=== PATIENT | female | born 1970 | race Caucasian/White ===

== ENCOUNTER → 2018-03-14 | Outpatient (CLI) | payer OTHER | END | disposition home or self-care (01) | LOC: CFH 03-05 12:43 | PROVIDERS: ATTEND Specialist | DX: N63.21 Unspecified lump in the left breast, upper outer quadrant (principal); R92.1 Mammographic calcification found on diagnostic imaging of breast | CPT/HCPCS: 76642; 77065; 77066; G0279 ==

== ENCOUNTER → 2018-03-20 | Outpatient (CLI) | payer OTHER ==
[~2018-03-20] MED LIST: LIDOCAINE 1%-EPI 1:100K, 20ML ONE; SODIUM BICARBONATE 4.0%, 5ML ONE
== END | disposition home or self-care (01) ==
LOC: CFH 10:23
PROVIDERS: ATTEND Specialist
DX: N63.21 Unspecified lump in the left breast, upper outer quadrant (principal)
CPT/HCPCS: 19083; 19084; 38505; 76942; 77065; 88305; J3490

== ENCOUNTER → 2018-03-21 | Outpatient (CLI) | payer OTHER ==
[~2018-03-21] MED LIST changes: +LIDOCAINE 1%, 20ML ONE; -LIDOCAINE 1%-EPI 1:100K, 20ML ONE; -SODIUM BICARBONATE 4.0%, 5ML ONE; +SODIUM BICARBONATE 4.2%, 5ML ONE
== END | disposition home or self-care (01) ==
LOC: CFH 08:06
PROVIDERS: ATTEND Specialist
DX: R92.1 Mammographic calcification found on diagnostic imaging of breast (principal); N63.20 Unspecified lump in the left breast, unspecified quadrant
CPT/HCPCS: 19081; 77065; 88305; J3490

== ENCOUNTER → 2018-04-01 | Outpatient (CLI) | payer OTHER ==
[~2018-04-01] MED LIST changes: -LIDOCAINE 1%, 20ML ONE; +OMNIPAQUE 350 MG/ML, 100ML BOTTLE ONE; -SODIUM BICARBONATE 4.2%, 5ML ONE
== END | disposition home or self-care (01) ==
LOC: RAD 08:34
PROVIDERS: ATTEND Surgery
DX: N28.1 Cyst of kidney, acquired (principal); R91.1 Solitary pulmonary nodule; C50.412 Malignant neoplasm of upper-outer quadrant of left female breast
CPT/HCPCS: 71260; 74177; 78306; A9503; Q9967

== ENCOUNTER → 2018-04-04 | Outpatient (CLI) | payer OTHER ==
[~2018-04-04] MED LIST changes: +GADOBUTROL 10 MMOL/10 ML VIAL ONE; -OMNIPAQUE 350 MG/ML, 100ML BOTTLE ONE
== END | disposition home or self-care (01) ==
LOC: CFH 07:04
PROVIDERS: ATTEND Surgery
DX: C50.412 Malignant neoplasm of upper-outer quadrant of left female breast (principal)
CPT/HCPCS: A9585; C8908

== ENCOUNTER → 2018-04-08 | Outpatient (CLI) | payer OTHER | END | disposition home or self-care (01) | LOC: CFH 12:41 | PROVIDERS: ATTEND Internal Medicine Hematology & Oncology | DX: C50.412 Malignant neoplasm of upper-outer quadrant of left female breast (principal) | CPT/HCPCS: 0399T; 93306 ==

== ENCOUNTER 2018-04-11 07:56 | Day surgery (SDC) | payer OTHER ==
[~2018-04-11] VITALS: Ht 172.7 cm; Wt 59.4 kg
[2018-04-11 08:50] VITALS: BP 114/73
[2018-04-11] MEDS ORDERED: no meds per pt (08:50)
[2018-04-11 08:57] LABS: HCG UR SG 1.019 (1.003-1.030)
[2018-04-11] MEDS ORDERED: GABAPENTIN 300 MG CAPSULE PO ONE (09:00)
[2018-04-11] MEDS ORDERED: ONDANSETRON ODT 8 MG PO ONE (09:00)
[2018-04-11] MEDS ORDERED: SCOPOLAMINE PATCH, 1.5MG PATCH.TD72 TD ONE (09:00)
[2018-04-11] MEDS ORDERED: ACETAMINOPHEN 500 MG TABLET PO ONE (09:00)
[2018-04-11] MEDS ORDERED: FENTANYL PF 100 MCG/2ML ONE (09:01)
[2018-04-11] MEDS ORDERED: MIDAZOLAM 1 MG/ML, 2ML ONE (09:01)
[2018-04-11] MEDS ORDERED: LACTATED RINGERS 1,000 ML IV SCH (09:15)
[2018-04-11] MEDS ORDERED: MEPERIDINE/PF 25MG/0.5ML IVPush PRN (09:30)
[2018-04-11] MEDS ORDERED: ONDANSETRON ODT 8 MG PO PRN (09:30)
[2018-04-11] MEDS ORDERED: ALBUTEROL/IPRATROPIUM 2.5MG/0.5MG, 3 ML NPPB PRN (09:30)
[2018-04-11] MEDS ORDERED: PROMETHAZINE 25 MG SUPP PR PRN (09:30)
[2018-04-11] MEDS ORDERED: MIDAZOLAM 1 MG/ML, 2ML IV PRN (09:30)
[2018-04-11] MEDS ORDERED: EPHEDRINE 50 MG/ML, 1ML IM PRN (09:30)
[2018-04-11] MEDS ORDERED: hydrALAzine 20 MG/ML, 1ML IV PRN (09:30)
[2018-04-11] MEDS ORDERED: OXYcodone 5 MG/5 ML ORAL.SOL UDC PO PRN (09:30)
[2018-04-11] MEDS ORDERED: FENTANYL PF 100 MCG/2ML IV PRN (09:30)
[2018-04-11] MEDS ORDERED: MORPHINE SULFATE 4 MG/ML, 1ML IVPush PRN (09:30)
[2018-04-11] MEDS ORDERED: LABETALOL 5MG/ML, 20ML IV PRN (09:30)
[2018-04-11] MEDS ORDERED: PROMETHAZINE 25 MG/ML, 1ML IV PRN (09:30)
[2018-04-11] MEDS ORDERED: BUPIVACAINE/PF-EPI 0.25% 1:200K INFIL ONE (10:51)
[2018-04-11] MEDS ORDERED: HEPARIN 1,000 UNITS/ML, 10ML PERMACATH ONE (10:52)
[2018-04-11] MEDS ORDERED: DEXAMETHASONE 4 MG/ML, 1ML ONE (11:01)
[2018-04-11] MEDS ORDERED: CEFAZOLIN 1,000 MG ONE (11:01)
[2018-04-11] MEDS ORDERED: PROPOFOL 10 MG/ML, 20ML ONE (11:01)
[2018-04-11] MEDS ORDERED: ONDANSETRON 2MG/ML, 2ML ONE (11:01)
== END 2018-04-11 12:15 | disposition home or self-care (01) ==
LOC: OUT 07:56
PROVIDERS: ATTEND Surgery
DX: C50.912 Malignant neoplasm of unspecified site of left female breast (principal); Z72.89 Other problems related to lifestyle; Z82.5 Family history of asthma and other chronic lower respiratory diseases
CPT/HCPCS: 36561; 71045; 77001; 81025; C1788; J0690; J1100; J1644; J2250; J2704; J3010; J7120; Q0162; J2405

== ENCOUNTER → 2018-04-12 | Outpatient (CLI) | payer OTHER ==
[~2018-04-12] MED LIST changes: +BUPIVACAINE/PF-EPI 0.25% 1:200K ONE; -GADOBUTROL 10 MMOL/10 ML VIAL ONE; +HEPARIN 1,000 UNITS/ML, 10ML ONE; +LIDOCAINE 1%, 20ML ONE; +LIDOCAINE 1%-EPI 1:100K, 20ML ONE; +SODIUM BICARBONATE 4.2%, 5ML ONE; +no meds per pt
== END | disposition home or self-care (01) ==
LOC: CFH 07:12
PROVIDERS: ATTEND Surgery
DX: C50.412 Malignant neoplasm of upper-outer quadrant of left female breast (principal)
CPT/HCPCS: 19285; J3490; J1644

== ENCOUNTER → 2018-07-19 | Outpatient (CLI) | payer OTHER ==
[~2018-07-19] MED LIST changes: -BUPIVACAINE/PF-EPI 0.25% 1:200K ONE; -HEPARIN 1,000 UNITS/ML, 10ML ONE; -LIDOCAINE 1%, 20ML ONE; -LIDOCAINE 1%-EPI 1:100K, 20ML ONE; -SODIUM BICARBONATE 4.2%, 5ML ONE
== END | disposition home or self-care (01) ==
LOC: CFH 13:01
PROVIDERS: ATTEND Surgery
DX: C50.912 Malignant neoplasm of unspecified site of left female breast (principal); R92.1 Mammographic calcification found on diagnostic imaging of breast
CPT/HCPCS: 77066

== ENCOUNTER → 2018-07-22 | Outpatient (CLI) | payer OTHER ==
[~2018-07-22] MED LIST changes: +GADOBUTROL 7.5 MMOL/7.5 ML VIAL ONE
== END | disposition home or self-care (01) ==
LOC: CFH 11:57
PROVIDERS: ATTEND Surgery
DX: C50.912 Malignant neoplasm of unspecified site of left female breast (principal)
CPT/HCPCS: A9585; C8908

== ENCOUNTER → 2018-08-15 | Outpatient (CLI) | payer OTHER ==
[~2018-08-15] MED LIST changes: -GADOBUTROL 7.5 MMOL/7.5 ML VIAL ONE
== END | disposition home or self-care (01) ==
LOC: CFH 07:45
PROVIDERS: ATTEND Surgery
DX: C50.412 Malignant neoplasm of upper-outer quadrant of left female breast (principal); C77.3 Secondary and unspecified malignant neoplasm of axilla and upper limb lymph nodes
CPT/HCPCS: 19281

== ENCOUNTER → 2018-08-15 | Outpatient (CLI) | payer OTHER ==
[2018-08-15 10:37] LABS: BASOPHILS # (AUTO) 0.03 x10^3/uL (0-0.1); BASOPHILS % (AUTO) 1 % (0-1); EOSINOPHILS # (AUTO) 0.03 x10^3/uL (0-0.4); EOSINOPHILS % (AUTO) 1 % (1-7); LYMPHOCYTES # (AUTO) 1.11 x10^3/uL (1-3.4); LYMPHOCYTES % (AUTO) 27 % (22-44); MD NO; MEAN CORPUSCULAR HEMOGLOBIN 31.1 pg (27.0-34.8); MEAN CORPUSCULAR HGB CONC 33.1 g/dL (32.4-35.8); MEAN CORPUSCULAR VOLUME 93.9 fL (80-100); MEAN PLATELET VOLUME 8.3 fL (7.4-10.4); MONOCYTES # (AUTO) 0.32 x10^3/uL (0.2-0.8); MONOCYTES % (AUTO) 8 % (2-9); NEUTROPHILS % (AUTO) 65 % (42-75); PLATELET COUNT 245 x10^3/uL (130-400); RED BLOOD COUNT 4.03 x10^6/uL (3.82-5.3); RED CELL DISTRIBUTION WIDTH 13.7 % (9.6-15.2)
== END | disposition home or self-care (01) ==
LOC: STAR 09:36
PROVIDERS: ATTEND Surgery
DX: Z01.818 Encounter for other preprocedural examination (principal); C50.419 Malignant neoplasm of upper-outer quadrant of unspecified female breast; Z85.3 Personal history of malignant neoplasm of breast
CPT/HCPCS: 36415; 84703; 85025; 93005

== ENCOUNTER 2018-08-22 05:19 | Day surgery (SDC) | payer OTHER ==
[~2018-08-22] VITALS: Ht 172.7 cm; Wt 58.5 kg
[~2018-08-22 05:19] MED LIST changes: +LIDOCAINE-MPF 1%, 5ML ONE
[2018-08-22] MEDS ORDERED: BUPIVACAINE/PF 0.5% ONE (05:59)
[2018-08-22] MEDS ORDERED: ISOSULFAN BLUE 10 MG/ML, 5ML IV ONE (06:00)
[2018-08-22] MEDS ORDERED: LIDOCAINE/PF 1%, 30ML ONE (06:00)
[2018-08-22] MEDS ORDERED: EPINEPHRINE 1 MG/ML, 1ML ONE (06:00)
[2018-08-22] MEDS ORDERED: SODIUM BICARBONATE 1 MEQ/ML, 50ML VIAL ONE (06:00)
[2018-08-22] MEDS ORDERED: BUPIVACAINE/PF-EPI 0.25% 1:200K ONE (06:00)
[2018-08-22] MEDS ORDERED: LACTATED RINGERS 1,000 ML IV SCH (06:02)
[2018-08-22 06:05] VITALS: BP 118/80
[2018-08-22] MEDS ORDERED: ACETAMINOPHEN 500 MG TABLET PO ONE (06:30)
[2018-08-22] MEDS ORDERED: ONDANSETRON 2MG/ML, 2ML IVPush ONE (06:30)
[2018-08-22] MEDS ORDERED: SCOPOLAMINE PATCH, 1.5MG PATCH.TD72 TD ONE (06:30)
[2018-08-22] MEDS ORDERED: GABAPENTIN 300 MG CAPSULE PO ONE (06:30)
[2018-08-22] MEDS ORDERED: FENTANYL PF 250 MCG/5ML ONE (06:50)
[2018-08-22] MEDS ORDERED: DIPHENHYDRAMINE 50 MG/ML, 1ML IVPush PRN (07:00)
[2018-08-22] MEDS ORDERED: OXYcodone 5 MG/5 ML ORAL.SOL UDC PO PRN (07:00)
[2018-08-22] MEDS ORDERED: MEPERIDINE/PF 25MG/0.5ML IVPush PRN (07:00)
[2018-08-22] MEDS ORDERED: FENTANYL PF 100 MCG/2ML IV PRN (07:00)
[2018-08-22] MEDS ORDERED: HYDROmorphone 1 MG/ML, 1ML IV PRN (07:00)
[2018-08-22] MEDS ORDERED: PROCHLORPERAZINE 5 MG/ML, 2ML IV PRN (07:00)
[2018-08-22] MEDS ORDERED: DIAZEPAM 5 MG/ML, 2ML IVPush PRN (07:00)
[2018-08-22] MEDS ORDERED: LABETALOL 5MG/ML, 20ML IV PRN (07:00)
[2018-08-22] MEDS ORDERED: hydrALAzine 20 MG/ML, 1ML IV PRN (07:00)
[2018-08-22] MEDS ORDERED: PROPOFOL 10 MG/ML, 20ML ONE (08:40)
[2018-08-22] MEDS ORDERED: CEFAZOLIN 1,000 MG ONE (08:40)
[2018-08-22] MEDS ORDERED: NEOSTIGMINE 1 MG/ML, 10ML ONE (08:40)
[2018-08-22] MEDS ORDERED: GLYCOPYRROLATE 0.2MG/1ML, 5ML ONE (08:40)
[2018-08-22] MEDS ORDERED: ONDANSETRON 2MG/ML, 2ML ONE (08:40)
[2018-08-22] MEDS ORDERED: ROCURONIUM 10MG/ML,5ML ONE (08:40)
[2018-08-22] MEDS ORDERED: SUCCINYLCHOLINE 20 MG/ML, 10ML ONE (08:40)
[2018-08-22] MEDS ORDERED: DEXAMETHASONE 4 MG/ML, 1ML ONE (08:40)
[2018-08-22] MEDS ORDERED: MEPERIDINE/PF 50 MG/ML ONE (09:11)
[2018-08-22] MEDS ORDERED: OXYcodone 5 MG/5 ML ORAL.SOL UDC ONE ×2 (09:12→10:25)
[2018-08-22] MEDS ORDERED: PROCHLORPERAZINE 5 MG/ML, 2ML ONE (09:33)
== END 2018-08-22 12:20 | disposition home or self-care (01) ==
LOC: OUT 05:19
PROVIDERS: ATTEND Surgery
DX: Z45.2 Encounter for adjustment and management of vascular access device (principal); C50.412 Malignant neoplasm of upper-outer quadrant of left female breast; C77.3 Secondary and unspecified malignant neoplasm of axilla and upper limb lymph nodes; R59.1 Generalized enlarged lymph nodes; Z98.51 Tubal ligation status; Z72.89 Other problems related to lifestyle
CPT/HCPCS: 19301; 19366; 36590; 38525; 38792; 88305; 88307; 88329; 88333; A9541; C1729; J0171; J0330; J0690; J1100; J2175; J2405; J2704; J2710; J3010; J3490; J7120; 88341; 88342

== ENCOUNTER 2018-09-12 16:35 | Day surgery (SDC) | payer OTHER ==
[~2018-09-12] VITALS: Ht 172.7 cm; Wt 57.5 kg
[~2018-09-12 16:35] MED LIST changes: -LIDOCAINE-MPF 1%, 5ML ONE
[2018-09-12] MEDS ORDERED: LACTATED RINGERS 1,000 ML IV SCH ×2 (16:45→21:00)
[2018-09-12] MEDS ORDERED: SCOPOLAMINE PATCH, 1.5MG PATCH.TD72 TD ONE (17:00)
[2018-09-12] MEDS ORDERED: ONDANSETRON 2MG/ML, 2ML IVPush ONE (17:00)
[2018-09-12] MEDS ORDERED: ACETAMINOPHEN 500 MG TABLET PO ONE (17:00)
[2018-09-12] MEDS ORDERED: GABAPENTIN 300 MG CAPSULE PO ONE (17:00)
[2018-09-12] MEDS ORDERED: MIDAZOLAM 1 MG/ML, 2ML ONE (17:23)
[2018-09-12] MEDS ORDERED: FENTANYL PF 250 MCG/5ML ONE (17:24)
[2018-09-12] MEDS ORDERED: BUPIVACAINE/PF-EPI 0.5% 1:200K ONE (18:08)
[2018-09-12] MEDS ORDERED: DEXAMETHASONE 4 MG/ML, 1ML ONE (18:29)
[2018-09-12] MEDS ORDERED: CEFAZOLIN 1,000 MG ONE (18:29)
[2018-09-12] MEDS ORDERED: PROPOFOL 10 MG/ML, 20ML ONE (18:29)
[2018-09-12] MEDS ORDERED: ONDANSETRON 2MG/ML, 2ML ONE (18:29)
[2018-09-12] MEDS ORDERED: SUCCINYLCHOLINE 20 MG/ML, 10ML ONE (18:29)
[2018-09-12] MEDS ORDERED: ROCURONIUM 10 MG/ML,10ML ONE (18:29)
[2018-09-12] MEDS ORDERED: MEPERIDINE/PF 25MG/0.5ML IVPush PRN (19:00)
[2018-09-12] MEDS ORDERED: KETOROLAC 30 MG/1 ML IV PRN (19:00)
[2018-09-12] MEDS ORDERED: hydrALAzine 20 MG/ML, 1ML IV PRN (19:00)
[2018-09-12] MEDS ORDERED: OXYcodone 5 MG/5 ML ORAL.SOL UDC PO PRN (19:00)
[2018-09-12] MEDS ORDERED: PROMETHAZINE 25 MG/ML, 1ML IV PRN (19:00)
[2018-09-12] MEDS ORDERED: LABETALOL 5MG/ML, 20ML IV PRN (19:00)
[2018-09-12] MEDS ORDERED: ONDANSETRON 2MG/ML, 2ML IVPush PRN ×2 (19:00→21:00)
[2018-09-12] MEDS ORDERED: ALBUTEROL SULFATE 2.5 MG/3 ML NPPB PRN (19:00)
[2018-09-12] MEDS ORDERED: BUPIVACAINE/PF-EPI 0.5% 1:200K IM ONE (19:00)
[2018-09-12] MEDS ORDERED: HYDROmorphone 1 MG/ML, 1ML IV PRN (19:00)
[2018-09-12] MEDS ORDERED: METOCLOPRAMIDE 5 MG/ML, 2ML IV PRN (19:00)
[2018-09-12] MEDS ORDERED: FENTANYL PF 100 MCG/2ML ONE (19:41)
[2018-09-12] MEDS ORDERED: OXYcodone 5 MG/5 ML ORAL.SOL UDC ONE (19:42)
[2018-09-12] MEDS: FENTANYL PF 100 MCG/2ML IV PRN ×2 (20:00→20:05)
[2018-09-12] MEDS ORDERED: MORPHINE SULFATE 4 MG/ML, 1ML IVPush PRN (21:00)
[2018-09-12] MEDS ORDERED: HYDROcodone/APAP 5/325 TABLET PO PRN (21:00)
== END 2018-09-12 22:14 | disposition home or self-care (01) ==
LOC: OR 16:35 → 4NOR 20:36 → OR 22:14
PROVIDERS: ATTEND Surgery
DX: C50.412 Malignant neoplasm of upper-outer quadrant of left female breast (principal); Z98.890 Other specified postprocedural states; Z72.89 Other problems related to lifestyle; Z79.899 Other long term (current) drug therapy
CPT/HCPCS: 19301; 19366; 88307; C1729; J0330; J0690; J1100; J2250; J2405; J2704; J3010; J7120; G0378

== ENCOUNTER → 2018-09-30 | Outpatient (CLI) | payer OTHER | END | disposition home or self-care (01) | LOC: ROC 07:37 | PROVIDERS: ATTEND Radiology Radiation Oncology | DX: C50.412 Malignant neoplasm of upper-outer quadrant of left female breast (principal) | CPT/HCPCS: 99214; G0463 ==

== ENCOUNTER → 2018-10-09 | Outpatient (CLI) | payer OTHER ==
[~2018-10-09] MED LIST changes: +OMNIPAQUE 350 MG/ML, 100ML BOTTLE ONE
== END | disposition home or self-care (01) ==
LOC: CFH 13:39
PROVIDERS: ATTEND Internal Medicine Hematology & Oncology
DX: R91.1 Solitary pulmonary nodule (principal); C50.412 Malignant neoplasm of upper-outer quadrant of left female breast
CPT/HCPCS: 71260; Q9967

== ENCOUNTER 2019-01-10 07:30 | Outpatient (CLI) | payer OTHER ==
[~2019-01-10 07:30] MED LIST changes: -OMNIPAQUE 350 MG/ML, 100ML BOTTLE ONE
== END 2019-01-10 23:59 | disposition home or self-care (01) ==
LOC: ROC 07:30 → EDSTATUS 10-14 12:36
PROVIDERS: ATTEND Radiology Radiation Oncology
DX: Z08 Encounter for follow-up examination after completed treatment for malignant neoplasm (principal); C50.412 Malignant neoplasm of upper-outer quadrant of left female breast
CPT/HCPCS: 99213; G0463

== ENCOUNTER → 2019-03-11 | Outpatient (CLI) | payer OTHER | END | disposition home or self-care (01) | LOC: CFH 10:36 | PROVIDERS: ATTEND Internal Medicine Hematology & Oncology | DX: Z12.31 Encounter for screening mammogram for malignant neoplasm of breast (principal); M85.88 Other specified disorders of bone density and structure, other site; I10 Essential (primary) hypertension | CPT/HCPCS: 77063; 77067; 77080 ==

== ENCOUNTER 2019-05-05 12:28 | Outpatient (CLI) | payer OTHER | END 2019-05-05 23:59 | disposition home or self-care (01) | LOC: CFH 12:28 | PROVIDERS: ATTEND Internal Medicine Hematology & Oncology | DX: C50.412 Malignant neoplasm of upper-outer quadrant of left female breast (principal) | CPT/HCPCS: 76641 ==

== ENCOUNTER 2019-09-25 11:42 | Outpatient (CLI) | payer OTHER ==
[2019-09-25] MEDS ORDERED: CALC1CAP8 PO (12:06)
== END 2019-09-25 23:59 | disposition home or self-care (01) ==
LOC: STAR 11:42
PROVIDERS: ATTEND Specialist
DX: Z02.9 Encounter for administrative examinations, unspecified (principal)

== ENCOUNTER 2019-10-01 10:33 | Day surgery (SDC) | payer OTHER ==
[~2019-10-01] VITALS: Ht 172.7 cm; Wt 58.4 kg
[~2019-10-01 10:33] MED LIST changes: +CALC1CAP8 PO
[2019-10-01] MEDS ORDERED: LACTATED RINGERS 1,000 ML IV SCH (10:53)
[2019-10-01] MEDS ORDERED: GABAPENTIN 300 MG CAPSULE PO ONE (11:00)
[2019-10-01] MEDS ORDERED: ACETAMINOPHEN 500 MG TABLET PO ONE (11:00)
[2019-10-01 11:04] VITALS: BP 119/80
[2019-10-01] MEDS ORDERED: BUPIVACAINE/PF 0.25% ONE (11:14)
[2019-10-01] MEDS ORDERED: SILVER NITRATE STICK TP ONE (11:14)
[2019-10-01] MEDS ORDERED: MIDAZOLAM 1 MG/ML, 2ML ONE (11:23)
[2019-10-01] MEDS ORDERED: FENTANYL PF 250 MCG/5ML ONE (11:23)
[2019-10-01] MEDS ORDERED: MEPERIDINE/PF 25MG/ML,1ML IVPush PRN (11:30)
[2019-10-01] MEDS ORDERED: OXYcodone 5 MG/5 ML ORAL.SOL UDC PO PRN (11:30)
[2019-10-01] MEDS ORDERED: FENTANYL PF 100 MCG/2ML IV PRN (11:30)
[2019-10-01] MEDS ORDERED: HALOPERIDOL 5 MG/ML IV PRN (11:30)
[2019-10-01] MEDS ORDERED: PROMETHAZINE 25 MG/ML, 1ML IV PRN (11:30)
[2019-10-01] MEDS ORDERED: HYDROmorphone 2 MG/ML, 1ML IVPush PRN (11:30)
[2019-10-01] MEDS ORDERED: hydrALAzine 20 MG/ML, 1ML IV PRN (11:30)
[2019-10-01] MEDS ORDERED: LABETALOL 5MG/ML, 20ML IV PRN (11:30)
[2019-10-01] MEDS ORDERED: GLYCOPYRROLATE 0.2MG/1ML, 5ML ONE (12:38)
[2019-10-01] MEDS ORDERED: PROPOFOL 10 MG/ML, 20ML ONE (12:38)
[2019-10-01] MEDS ORDERED: ROCURONIUM 10MG/ML,5ML ONE (12:38)
[2019-10-01] MEDS ORDERED: KETOROLAC 30 MG/1 ML ONE (12:38)
[2019-10-01] MEDS ORDERED: DEXAMETHASONE 4 MG/ML, 1ML ONE (12:38)
[2019-10-01] MEDS ORDERED: CEFAZOLIN 1,000 MG ONE (12:38)
[2019-10-01] MEDS ORDERED: ONDANSETRON 2MG/ML, 2ML ONE (12:38)
[2019-10-01] MEDS ORDERED: SUCCINYLCHOLINE 20 MG/ML, 10ML ONE (12:38)
[2019-10-01] MEDS ORDERED: NEOSTIGMINE 1 MG/ML, 10ML ONE (12:38)
[2019-10-01] MEDS ORDERED: HALOPERIDOL 5 MG/ML ONE (13:33)
[2019-10-01] MEDS ORDERED: PROMETHAZINE 25 MG/ML, 1ML ONE (13:56)
== END 2019-10-01 15:40 | disposition home or self-care (01) ==
LOC: OUT 10:33
PROVIDERS: ATTEND Specialist
DX: Z40.02 Encounter for prophylactic removal of ovary(s) (principal); N83.8 Other noninflammatory disorders of ovary, fallopian tube and broad ligament; N94.89 Other specified conditions associated with female genital organs and menstrual cycle; Z85.3 Personal history of malignant neoplasm of breast; Z90.12 Acquired absence of left breast and nipple; Z92.21 Personal history of antineoplastic chemotherapy; Z92.3 Personal history of irradiation
CPT/HCPCS: 58661; 88305; J0330; J0690; J1100; J1630; J1885; J2250; J2405; J2550; J2704; J2710; J3010; J3490; J7120

== ENCOUNTER 2020-04-22 10:23 | Outpatient (CLI) | payer OTHER | END 2020-04-22 23:59 | disposition home or self-care (01) | LOC: CFH 10:23 | PROVIDERS: ATTEND Internal Medicine Hematology & Oncology | DX: Z12.31 Encounter for screening mammogram for malignant neoplasm of breast (principal); C50.412 Malignant neoplasm of upper-outer quadrant of left female breast | CPT/HCPCS: 76641; 77063; 77067 ==

== ENCOUNTER 2021-03-24 08:05 | Outpatient (CLI) | payer OTHER | END 2021-03-24 23:59 | disposition home or self-care (01) | LOC: CFH 08:05 | PROVIDERS: ATTEND Internal Medicine Hematology & Oncology | DX: C50.412 Malignant neoplasm of upper-outer quadrant of left female breast (principal); M85.89 Other specified disorders of bone density and structure, multiple sites | CPT/HCPCS: 77080 ==

== ENCOUNTER → 2021-04-29 | Outpatient (CLI) | payer OTHER | END | disposition home or self-care (01) | LOC: CFH 15:31 | PROVIDERS: ATTEND Internal Medicine Hematology & Oncology | DX: Z12.31 Encounter for screening mammogram for malignant neoplasm of breast (principal); Z12.39 Encounter for other screening for malignant neoplasm of breast; C50.412 Malignant neoplasm of upper-outer quadrant of left female breast | CPT/HCPCS: 76641; 77063; 77067 ==